=== PATIENT | male | born 1980 | race Caucasian/White ===

== ENCOUNTER → 2016-10-05 | Day surgery (SDC) | payer OTHER ==
[~2016-10-05] VITALS: Ht 172.7 cm; Wt 59.0 kg
--- NOTE | 2016-10-05 16:05 | Operative Report ---
Operative/Inv Procedure Report Surgery Date: 10/05/16 Name of Procedure: right ureter stone ESWL; fluoroscopy Pre-Operative Diagnosis: right colic with right mid-ureter stone (7mm) Post-Operative Diagnosis: same Estimated Blood Loss: none Surgeon/Material Reprocessing Associate: DEVIN MELCHOR MD Anesthesia: moderate sedation Drains: none Specimens: none Complications: none Operative/Procedure Note Note: The patient was taken to the operating room and placed on the ESWL table in supine position. With the patient awake, timeout was performed to cofirm correct identity, procedure, laterality, anesth., and other pertinent jamil- operative information. The patient's RIGHT flank was placed over the table cut -out, overlying the dome of the shockwave generator. C-arm fluroscopy, as well as renal US, was used to locate the stone, and evaluate the RIGHT kidney. The stone was clearly visible on fluoroscopy at the distal right ureter, measuring approximately 7 mm stone burden. Renal US confimred mild hydronephrosis, and no tumor, seen in the right kidney. After adequate anesthesia, the right ureter stone's position was optimized for Shockwave lithotrypsy using fluoroscopy in AP and oblique views. The E.S.W.L. was initiated at low power levels x 200 shocks. After noting the patient's tolerance to the shockwaves, the shock wave power level was quickly maximized. Toward the end of the procedure, the composition of the stone had changed significantly indicating the pulverization of the ureter stone. A total of 3000 shockwaves were delivered to the stone in order to achieve adequate lithotrypsy. The patient tolerated both the procedure well, was awakened, and taken to recovery in satisfactory condition via stretcher. The pt will be dischared home with pain meds, diet orders, and intructions to catch fragments with straining the urine. The patient is to have follow-up renal ultrasound and KUB in 1-2 weeks, prior to follow-up visit in my office. Findings: mid ureter 7mm . htydro. Discharge Disposition: Same Day Admissions CC: DEVIN MELCHOR MD
== END ==
LOC: STS 03:12
DX: N20.1 Calculus of ureter (principal)
CPT/HCPCS: J2250

== ENCOUNTER → 2017-09-27 | Day surgery (SDC) | payer OTHER ==
[~2017-09-27] VITALS: Ht 172.7 cm; Wt 62.1 kg
--- NOTE | 2017-09-28 07:26 | Operative Report ---
Operative/Inv Procedure Report Surgery Date: 09/27/17 Name of Procedure: RIGHT RENAL ESWL Pre-Operative Diagnosis: RIGHT RENAL STONE AND COLIC Post-Operative Diagnosis: SAME Estimated Blood Loss: none Surgeon/Lumber Scaler: Rolando Mesa MD Anesthesia: moderate sedation Specimens: none Complications: none Operative/Procedure Note Note: The patient was taken to the operating room placed on the OR table in supine position. Timeout was performed, with the patient awake, in order to confirm correct procedure, laterality, anesthesia, and other pertinent perioperative information. After adequate anesthesia and antibiotics, the patient was then positioned over the ESWL table cutout overlying the treatment dome. Fluoroscopy, using AP and oblique views, as well as renal ultrasound, or performed in order to locate the stone. The position of the RIGHT renal stone was optimized, and positioned in the middle of the ESWL crosshairs. The stone was measured to be approximately 6 mm in size. ESWL was initiated at low power, and after 200 shockwaves delivered , noting the patient's tolerance to the shockwaves, the power was increased to maximum. At the end of 2500 shockwaves, fluoroscopy confirms the change in consistency of the stone, indicating shattering of the stone. All sponge needle and instrument count were correct at the end of the case. The patient tolerated the procedures well, and was taken to the recovery room in satisfactory condition. The patient is discharged home with pain medication, and follow-up instructions with in 2-3 weeks' time. Findings: discussed with pt that fluorosocopy of right side revealed NO other visible stones, ie in ureter tract. Discharge Disposition: Same Day Admissions Additional Comments: discussed with pt that ureteroscopy with laser likely more effective means of removing right renal stone CC: Rolando Mesa MD
== END ==
LOC: STS 02:14
DX: N20.0 Calculus of kidney (principal)
CPT/HCPCS: J2250

== ENCOUNTER → 2017-10-27 | Day surgery (SDC) | payer OTHER ==
[~2017-10-27] VITALS: Ht 172.7 cm; Wt 63.5 kg
[~2017-10-27] MED LIST: IBUPROFEN800 M1 PO; KETOROLAC TROME10 M1 PO
--- NOTE | 2017-10-27 16:04 | RADIOLOGY REPORT ---
EXAMINATION: XR ABDOMEN CLINICAL INDICATION: Right ureteral stent. COMPARISON: None. TECHNIQUE: 2 fluoroscopic images of the abdomen were saved along with 10 spot films. The [employer] 9900 unit was utilized with 6 minutes and 55 seconds of fluoroscopy time. FINDINGS: Findings demonstrate pelvocaliectasis on the right with probable large renal pelvic stone. IMPRESSION: Fluoroscopy provided during cystoscopy. Spot films demonstrate right renal pelvic stone.
--- NOTE | 2017-10-28 07:38 | Operative Report ---
Operative/Inv Procedure Report Surgery Date: 10/27/17 Name of Procedure: cysto: right ureteroscopy with extensive laser lithotrypsy of 45mm stone: retrograde pyelogram, stent placement Pre-Operative Diagnosis: large right renal pelvis stone with hydro-calyxes Post-Operative Diagnosis: same Estimated Blood Loss: less than 50ml Surgeon/Research Attorney: Rolando Mesa MD Anesthesia: laryngeal mask airway Implants: 4.7 x 22 cm stent Drains: none Specimens: rigth stone fragment Complications: none Operative Indication: persistent stone and renal colic despite 2 prior ESWLs. Operative/Procedure Note Note: The patient was taken to the operating room and placed on the OR table in supine position. Timeout was performed, with the patient awake, in order to confirm correct patient, procedure, laterality, anesthesia, and other pertinent information. After adequate anesthesia and antibiotics, the patient was then placed in lithotomy stirrups, draped and prepped in the usual surgical fashion. A 22 [place] cystoscope sheath with 30 angle lens was inserted into the bladder without difficulty. Upon entering the bladder, the bladder was noted to be free of stone. Both ureteral orifices were in their orthotopic position, with clear efflux bilaterally. The right ureter orifice was intubated with an 8fr tiger-tail catheter, and a retrograde pyelogram with fluoroscopy was performed revealing a very large right renal pelvis stone (45mm) with all 3 calyxes dilated, with no hydro-ureter. The tiger-tail catheter was removed, followed by insertion of a 0.035 Glidewire, which was advanced into the right renal pelvis without difficulty. Correct placement of the wire was confirmed on fluoroscopy. The cystoscope was removed, leaving the Glidewire in place. Using the gluidewire as a guide, a flexible digital ureteroscope, was railroaded over the gluidewire, into the right ureter at the level of the obstructing stone. The Glidewire was removed, and the 365 um yag-fiber was insterted into the ureteroscope. With the laser fiber in direct contact with the large 45 mm stone at the renal pelvis, the laser lithotripsy was performed in order to pulverize the stone into multiple tiny fragments/dust. The fragments were flushed out and sent to pathology for analysis. After several hours of laser lithotrypsy, significant bleeding from the renal pelvis trauma was noted (bruising) therefore obscuring my view of the stone, and signficantly increasing risk of injury. At this point, I was only able to remove 60% of the stone, and decided to bring pt. back for the remaining stone after bleeding had resolved. In order to decompress the renal calyxes, and the length of time spent in the ureter, I decided that stent placement was necessary. A 0.035 guide wire was reinserted into the right upper pole calyx/ renal pelvis. The ureteroscope was then withdrawn slowly, leaving the wire in place, and again revealing no tumor, and no stone, along the entire length of the ureter. The gluide wire was back-loaded into the 22 [place]ian cystoscope sheath with a 30 angle lens. The cystoscope was then reinserted into the bladder, and the right orifice was visualized. Over the gluidewire, a 4.7 X22 Bard [place] stent was rail-roaded, and advanced into the right upper pole calyx, bypassing the renal pelvis stone. With the stent in proper place, the Glidewire was removed, and the stent remained in proper position confirmed by fluoroscopy, and cystoscope. All sponge needle and instrument count were correct at the end of the case. The patient tolerated the procedure well, and was then taken to the recovery room in satisfactory condition. He is to follow up in a weeks time to complete the laser lithotrypsy of the remaining stone fragment. Findings: larger than x-ray report stone: staghorn approximately 45mm in size filling renal pelvis. Discharge Disposition: PACU Additional Comments: bleeding during procedure obstructed views of stone therefore procedure stopped CC: Rolando Mesa MD
== END ==
LOC: STS 01:17
DX: N13.2 Hydronephrosis with renal and ureteral calculous obstruction (principal); Z87.442 Personal history of urinary calculi
CPT/HCPCS: 74018; 82355; C2617; J0131; J1100; J1885; J2250; J2405

== ENCOUNTER → 2017-11-01 | Day surgery (SDC) | payer OTHER ==
[~2017-11-01] VITALS: Ht 172.7 cm; Wt 63.5 kg
--- NOTE | 2017-11-01 21:32 | RADIOLOGY REPORT ---
EXAMINATION: CR ABDOMEN/INTRAOPERATIVE FLUOROSCOPY CLINICAL INDICATION: Right cystoscopy and ureteroscopy with laser and stent placement. COMPARISON: 10/27/2017. TECHNIQUE/FINDINGS: Fluoroscopic equipment was dedicated to the operating room for the performance of an intraoperative procedure. Several (5) spot films were acquired and are archived in PACS. Please refer to operative notes for procedural detail. FLUOROSCOPY TIME: 1.1 minutes. IMPRESSION: Administrative dictation for intraoperative fluoroscopy and image archiving in PACS. Please refer to operative notes for details.
--- NOTE | 2017-11-03 11:29 | Operative Report ---
Operative/Inv Procedure Report Surgery Date: 11/01/17 Name of Procedure: cysto: right ureterocopy with laser litho right renal stone: right stent exchange. fluoroscopy Pre-Operative Diagnosis: right staghorn remanant with stent Post-Operative Diagnosis: same Estimated Blood Loss: scant Surgeon/Insole And Heel Stiffener: Rolando Mesa MD Anesthesia: laryngeal mask airway Implants: 6x22 stent Drains: none Specimens: right stone fragments Complications: none Operative/Procedure Note Note: The patient was taken to the operating room and placed on the OR table in supine position. Timeout was performed, with the patient awake, in order to confirm correct patient, procedure, laterality, anesthesia, and other pertinent information. After adequate anesthesia and antibiotics, the patient was then placed in lithotomy stirrups, draped and prepped in the usual surgical fashion. A 22 Greek cystoscope sheath with 30 angle lens was inserted into the bladder without difficulty. Upon entering the bladder, the bladder was noted to be free of stone. Both ureteral orifices were in their orthotopic position, with clear efflux bilaterally. The right ureter orifice was intubated with a 4.7 x 22 stent which was grasped with an alligator forceps. The cystoscope along with entire stent was removed without difficulty. The cystoscope was then reinserted into the bladder without difficulty. AN 8fr tiger-tail catheter, and a retrograde pyelogram with fluoroscopy was performed revealing the remaining 2.0cm renal pelvis stone. The tiger-tail catheter was removed, followed by insertion of a 0.035 Glidewire, which was advanced into the right renal pelvis without difficulty. Correct placement of the wire was confirmed on fluoroscopy. The cystoscope was removed, leaving the Glidewire in place. Using the gluidewire as a guide, a flexible digital ureteroscope, was railroaded over the gluidewire, into the right ureter at the level of the obstructing stone. The Glidewire was removed, and the 400um fiber was insterted into the ureteroscope. With the laser fiber in direct contact with the large 20 mm stone at the renal pelvis. The laser lithotripsy was performed at 8Hz/1.0J, in order to pulverize the stone into multiple tiny dust/fragments. The fragments were flushed out and sent to pathology for analysis. Having completely removed the renal pelvis stone, the flexible uretersocope was advanced into the right renal pelvis, and pyeloscopy/ calyxoscopy was performed. Severe hydronephrotic changes were noted in all 3 calyxes, but not tumor, nor additional stones. The 0.35 wire was then reinserted via the flexible ureteroscope. The ureteroscope was then withdrawn slowly, leaving the wire in place, and again revealing no tumor, and no stone, along the entire length of the ureter. The right 0.035 Glidewire was then backloaded into the 22 Greek cystoscope sheath. The 22 Greek cystoscope sheath with a 30 angle lens was then reinserted into the bladder. A 6 x 22 Bard onlay stent was railroaded over the Glidewire, and advanced into the right renal pelvis without difficulty. The Glidewire was removed, and the stent remained in proper place confirmed by fluoroscopy, and cystoscopy. All sponge needle and instrument count were correct at the end of the case. The patient tolerated the procedure well, and was then taken to the recovery room in satisfactory condition. She is to follow up in 2-4 weeks for POC/follow-up. Discharge Disposition: PACU CC: Rolando Mesa MD
== END ==
LOC: STS 01:20
DX: N13.2 Hydronephrosis with renal and ureteral calculous obstruction (principal)
CPT/HCPCS: 74018; 82355; C2617; J0131; J1580; J2250

== ENCOUNTER → 2018-01-12 | Day surgery (SDC) | payer OTHER ==
[~2018-01-12] VITALS: Ht 172.7 cm; Wt 63.5 kg
--- NOTE | 2018-01-12 15:06 | RADIOLOGY REPORT ---
EXAMINATION: Intraoperative fluoroscopy CLINICAL INFORMATION: Right-sided ureteroscopy with laser. COMPARISON: Intraoperative fluoroscopy 11/01/2017 and 10/27/2017 TECHNIQUE: Intraoperative fluoroscopy was provided for use by Dr. Mesa. A total of 7 images were saved to PACS. Radiologist was not present during today's imaging. TOTAL FLUOROSCOPIC TIME: 1 minute and 20 seconds FINDINGS\E\IMPRESSION: Intraoperative fluoroscopy provided for use by Dr. Mesa. Please see operative note for detailed findings.
--- NOTE | 2018-01-17 13:01 | Operative Report ---
Operative/Inv Procedure Report Surgery Date: 01/12/18 Name of Procedure: Cystoscopy. Right flexible ureteroscopy with laser lithotripsy of right partial staghorn calculus. Pre-Operative Diagnosis: Right partial staghorn calculus Post-Operative Diagnosis: Same Estimated Blood Loss: less than 50ml Surgeon/Wellness Coach: Rolando Mesa MD Anesthesia: laryngeal mask airway Specimens: Right renal kidney stones Complications: None Condition: Improved Operative/Procedure Note Note: The patient was taken to the operating room and placed on the OR table in supine position. Timeout was performed, with the patient awake, in order to confirm correct patient, procedure, laterality, anesthesia, and other pertinent information. After adequate anesthesia and antibiotics, the patient was then placed in lithotomy stirrups, draped and prepped in the usual surgical fashion. A 22 Bangl[place]hi cystoscope sheath with 30 angle lens was inserted into the bladder without difficulty. Upon entering the bladder, the bladder was noted to be free of stone. Both ureteral orifices were in their orthotopic position, with clear efflux bilaterally. The right ureter orifice was intubated with an 8fr tiger-tail catheter, and a retrograde pyelogram with fluoroscopy was performed revealing filling defects in the upper, mid, and lower pole calyxes, as well as renal pelvis, without hydronephrosis. The tiger-tail catheter was removed, followed by insertion of a 0.035 Glidewire, which was advanced into the right renal pelvis without difficulty. Correct placement of the wire was confirmed on fluoroscopy. The cystoscope was removed, leaving the Glidewire in place. Using the gluidewire as a guide, a flexible digital ureteroscope, was railroaded over the gluidewire, into the right ureter at the level of the obstructing stone. The Glidewire was removed, and the 400um fiber was insterted into the ureteroscope. With the laser fiber in direct contact with the large stones at the renal pelvis, the laser lithotripsy was performed in order to pulverize the stone into multiple tiny fragments. The fragments were flushed out and sent to pathology for analysis. Having completely removed the renal stone, the flexible uretersocope was advanced into the right renal pelvis, and pyeloscopy/calyxoscopy was performed. Additional large stones were seen at the upper pole, mid pole, and lower pole of the right kidney. The flexible ureteroscope was advanced into the upper pole, mid pole, and lower poles of the right kidney where the laser fiber was used to completely obliterate all remaining stones, and all of the right side calyces. Large amount of stone dust was irrigated out of the kidney in order to confirm no additional large stone fragments remained within any of the calyces, nor the right renal pelvis. The ureteroscope was then withdrawn slowly, again revealing no tumor, and no stone, along the entire length of the ureter. All sponge needle and instrument count were correct at the end of the case. The patient tolerated the procedure well, and was then taken to the recovery room in satisfactory condition. She is to follow up in 2-4 weeks for POC/follow-up. Findings: stone dust only: no stone/fragments left in any calyx/pelvis Discharge Disposition: PACU CC: Rolando Mesa MD
== END ==
LOC: STS 02:55
DX: N20.0 Calculus of kidney (principal)
CPT/HCPCS: 74018; J0131; J0696; J1100; J2250; J2405; J3490